=== PATIENT | male | born 1980 | race African-American/Black ===

== ENCOUNTER 2020-01-22 10:36 | Outpatient (REF) | payer OTHER, SELFPAY ==
[2020-01-22 11:38] LABS: MANUAL DIFF FLAG NO
[2020-01-22 11:46] LABS: Glucose Urine UA NEG (NEG); Leukocyte Esterase Urine NEG (NEG); Nitrite Urine NEG (NEG); PH 6.5 (5.0-8.0); Specific Gravity - Urine 1.025 (1.005-1.025); Urine Ketones NEG (NEG); Urine Protein NEG (NEG-TRACE)
[2020-01-22 11:47] LABS: Basophils Percent Auto 0.4 % (0-2); Eosinophils Absolute Auto 0.2 X10*3/uL (0.0-0.4); Eosinophils Percent Auto 2.7 % (0-4); Hematocrit 37.6 % (42-52); Hemoglobin 12.3 g/dl (14.0-18.0); Imm Gran Abs Auto 0.05 X10*3/uL (0.00-0.03); Imm Gran Pct Auto 0.7 % (0.0-0.4); Lymphocytes Percent Auto 26.6 % (20-40); Mean Corpuscular HGB Conc 32.7 g/dl (31.0-36.0); Mean Corpuscular Volume 97.9 fL (80-98); Mean Platelet Volume 9.3 fL (9.4-12.4); Monocytes Absolute Auto 0.6 X10*3/uL (0.1-1.2); Monocytes Percent Auto 8.4 % (2-11); Neutrophils Absolute Auto 4.6 X10*3/uL (2.0-8.3); Neutrophils Percent Auto 61.2 % (45-73); Platelet Count 299 X10*3/uL (160-400); Red Blood Count 3.84 X10*6/uL (4.60-5.80); Red Cell Distribution Width 12.1 % (11.0-16.0); White Blood Count 7.5 X10*3/uL (4.8-10.8)
[2020-01-22 11:48] LABS: Appearance Urine CLEAR; Color Urine YELLOW; Urine Blood TRACE (NEG)
[2020-01-22 12:01] LABS: Cholesterol 230 mg/dL; HDL Cholesterol 44 mg/dL; LDL Cholesterol Calculated 175 mg/dl; Triglycerides 59 mg/dL
[2020-01-22 12:02] LABS: Mucus Urine 2+ /LPF; WBC Urine 0-2 /HPF (0-4)
[2020-01-22 12:03] LABS: Alanine Aminotransferase 12 U/L (0-40); Albumin Level 4.3 g/dL (3.5-5.0); Alkaline Phosphatase 43 U/L (39-117); Anion Gap 12 (12-20); Aspartate Amino Transferase 15 U/L (5-37); Bilirubin Total 0.6 mg/dL (0.0-1.0); Blood Urea Nitrogen 14 mg/dL (9-16); Carbon Dioxide 27 mmol/L (22-29); Chloride 106 mmol/L (96-108); Estimated Glomerular Filt Rate > 60; Glucose Fasting 94 mg/dL (60-99); Potassium 4.2 mmol/l (3.3-5.1); Sodium 141 mmol/L (135-145); Total Protein 7.5 g/dL (6.5-8.0)
[2020-01-22 12:24] LABS: TSH reflex Free T4 0.56 mIU/mL (0.32-4.0)
[2020-01-22 13:10] LABS: Folate 3.5 ng/mL (> or = 4.0); Vitamin B12 234 pg/mL (200-900)
== END 2020-01-22 10:37 | disposition home or self-care (01) ==
LOC: HO.LAB 10:36
PROVIDERS: PCP Physician Assistant; Visit Provider Internal Medicine
DX: Z00.00 Encounter for general adult medical examination without abnormal findings (principal)
CPT/HCPCS: 36415; 80053; 80061; 81001; 82607; 82746; 84443; 85025

== ENCOUNTER 2022-12-04 09:30 | Outpatient (AMB) | payer OTHER, SELFPAY ==
[2022-12-04 09:33] VITALS: BP 134/82; PULSE 89; O2SAT 97; BMI 22.9
--- NOTE | 2022-12-04 09:33 | MHC.PC.OV ---
Vital Signs 12/04/22 09:33 Height 5 ft 8 in Weight 150 lb 8 oz BMI 22.9 BP 134/82 Blood Pressure Location Lt brachial Position Sitting Pulse 89 Pulse Source Pulse Oximeter Pulse Oximetry (%) 97 Oxygen Delivery Method Room Air Intake Visit Reasons: PE Allergies No Known Allergies [No Known Allergies*] Allergy (Verified 12/04/22 09:39) Medication List - Last Reconciled 12/04/22 by Pablo Kellogg PA-C mirtazapine 7.5 mg PO BEDTIME risperidone 1 mg PO DAILY Tobacco use date assessed: 12/04/22 HPI PE HPI Details Patient is a 42-year-old male here today for routine annual physical. ? Patient has a past medical history significant for major depressive disorder, OCD,, borderline high cholesterol . Concern--> if no concerns today. His weight has stabilized around 150 lb. Unfortunately has not gotten fasting labs done before today's visit. ? .. ? OCD: IS followed by a therapist weekly.? Continues on his mental health medications.? Continues to smoke weed on a daily basis .. Borderline high cholesterol: has not gotten fasting labs done to re-evaluate cholesterol. Unfortunately has not been able to get any labs done .. Vaccine: Considering the COVID vac, needs Tdap though declines offers to get Tdap vaccine today [facility] Medical History Tinnitus of both ears Surgical History No pertinent past surgical history Family History Father Osteoarthritis of knee Mother History of hyperthyroidism Social History (Updated 12/04/22 @ 09:43 by Pablo Kellogg PA-C) Housing: Apartment Alcohol intake: current Alcohol intake frequency: holidays/special occasions only Patient Tobacco Use Status: Never used Tobacco e-Cigarette/Vaping Use: Never Used Second Hand Smoke Exposure: No Substance Use Type: Marijuana Current occupational status: disabled Cognitive needs: No Hearing needs: No Vision needs: No Questionnaire PHQ-9 Over the last 2 weeks, how often have you been bothered by any of the following problems? 1. Little interest or pleasure in doing things: not at all 2. Feeling down, depressed, or hopeless: not at all 3. Trouble falling or staying asleep, or sleeping too much: not at all 4. Feeling tired or having little energy: not at all 5. Poor appetite or overeating: not at all 6. Feeling bad about yourself - or that you are a failure or have let yourself or your family down: not at all 7. Trouble concentrating on things, such as reading the newspaper or watching television: not at all 8. Moving or speaking so slowly that other people could have noticed. Or the opposite - being so fidgety or restless that you have been moving around a lot more than usual: not at all 9. Thoughts that you would be better off or of hurting yourself in some way: not at all Total score: 0 Depression Screening Interpretation: Negative 43468 - PHQ-9 Billing: Yes Source: Developed by Drs. David Obrien, Aspen Vergara, David Sol and colleagues, with an educational bernardo from [employer]. Thrive Questionnaire Date Thrive assessed: 12/04/22 I am a: Patient What is your living situation today?: I have a steady place to live Within the past 12 months, did the food you bought not last and you didn't have the money to get more?: Never true Within the past 12 months, did you worry whether your food would run out before you got money to buy more?: Never true Currently or been in a relationship where the following occur: no concerns reported AUDIT C Alcohol Use Questionnaire (AUDIT-C) 1. How often do you have a drink containing alcohol?: Monthly or less 2. How many drinks containing alcohol do you have on a typical day when you are drinking?: 1 or 2 3. How often do you have six or more drinks on one occasion?: Never Total Score: 1 JEFFRY-7 AMB Questionnaire JEFFRY-7 Date JEFFRY - 7 assessed: 12/04/22 Feeling nervous, anxious, or on edge: 0 = Not at all Not being able to stop or control worryin = Not at all Worrying too much about different things: 0 = Not at all Trouble relaxin = Not at all Being so restless that it is hard to sit still: 0 = Not at all Becoming easily annoyed or irritable: 0 = Not at all Feeling afraid as if something awful might happen: 0 = Not at all Total JEFFRY-7 score (0-4 normal; 5-9 mild; 10-14 moderate; 15-21 severe): 0 Source: Developed by Drs. David Obrien, Aspen Vergara, David Sol and colleagues, with an educational bernardo from [employer]. JEFFRY-7 Assessment Billing JEFFRY-7 Assessment Tool: JEFFRY-7 Assessment 65363 Review of Systems Const Denies body aches, Denies chills, Denies excessive sweating, Denies fatigue, Denies fever(s) and Denies headache(s) Eyes Denies blurry vision ENT Denies dysphagia, Denies vertigo, Denies dizziness, Denies headache(s), Denies hearing loss and Denies tinnitus Card Denies chest pain, Denies chest pain with activity, Denies syncope, Denies irregular heart rhythm and Denies dyspnea Resp Denies chest congestion, Denies cough, Denies hemoptysis, Denies dyspnea and Denies wheezing GI Denies abdominal pain, Denies melena, Denies hematochezia, Denies coffee ground emesis, Denies dysphagia, Denies diarrhea, Denies nausea and Denies vomiting Denies difficulty urinating, Denies dysuria, Denies urinary frequency, Denies urinary hesitancy and Denies urinary urgency Musc Denies arthralgias, Denies limited range of motion, Denies muscle cramps and Denies muscle weakness Skin/Breast Denies rash and Denies skin ulcer Neuro Denies Abnormal speech present, Denies confusion, Denies vertigo, Denies dizziness, Denies syncope, Denies headache(s), Denies memory loss and Denies seizure-like activity Psych Denies anxiety, Denies confusion, Denies depression, Denies memory loss, Denies panic attacks and Denies paranoia Endo Denies excessive sweating, Denies fatigue, Denies flushing, Denies polydipsia and Denies polyuria Aller/Immun Denies wheezing Physical exam (Primary Care) Vital Signs: Last Vital Signs Pulse 89 12/04/22 09:33 BP 134/82 12/04/22 09:33 Pulse Ox 97 12/04/22 09:33 Oxygen Delivery Method Room Air 12/04/22 09:33 BMI result Body Mass Index 22.9 Tobacco/Smoking Status: Tobacco use Status Tobacco use date assessed 12/04/22 12/04/22 09:37 Patient Tobacco Use Status Never used Tobacco 12/04/22 09:37 e-Cigarette/Vaping Use Never Used 12/04/22 09:37 PHQ-9: PHQ-9 Score PHQ-9: Total score 0 12/04/22 09:37 Depression Screening Interpretation: Negative Thrive Assessment: Date of Thrive Assessment Date Thrive assessed 12/04/22 12/04/22 09:37 Currently or been in a relationship where the following occur: no concerns reported Const General: cooperative, comfortable, no acute distress, alert and awake; No confusion Orientation/consciousness: oriented to person, oriented to place, patient oriented x3 and No confusion HENMT Head: Yes normocephalic Ears: external ears normal and TM's normal bilaterally Face and sinus: No sinus tenderness Mouth: Normal oral and palatal mucosa present and tongue normal Teeth and gingiva: dentition normal and gingiva normal Throat: Yes posterior oropharynx normal, Yes tonsils normal and Yes uvula midline Eyes Conjunctivae: conjunctivae normal Sclerae: sclerae normal Pupils: Equal, round and reactive pupils present EOM: EOMs intact bilaterally Direct Ophthalmoscopy: No no photophobia Neck Neck: Yes no lymphadenopathy, No tender and Yes no JVD Thyroid: Thyroid normal Carotids: no bruits Chest Chest palpation & inspection: no tenderness Resp Effort & Inspection: normal respiratory effort, no audible wheezes, not labored and no stridor Auscultation: no crackles, no rales, no rhonchi and no wheezes Cardio Jugular venous distension: no JVD Rate: regular rate, not bradycardic and not tachycardic Rhythm: regular rhythm Bruits: no carotid bruits Peripheral pulses: Peripheral pulses 2+ throughout GI Inspection: Yes normal to inspection, No abdominal wall ecchymosis and No visible herniation Palpation (GI): Soft to palpation, nontender, no guarding, not rigid and No hepatosplenomegaly present Auscultation: normoactive bowel sounds General: Yes no CVA tenderness Back/Spine/Pelvis Back: no CVA tenderness and No back tenderness Cervical Spine: cervical ROM normal Thoracic/Lumbar Spine: thoracic and lumbar spine normal to inspection, straight leg raise negative bilaterally, No thoraco-lumbar ROM limited and No lumbar spinal tenderness Skin Lesions: no lesions Rashes: no rashes Wounds: no wounds Neuro General: oriented to person, oriented to place, patient oriented x3, CN's II-XI intact bilaterally and No confusion Cranial nerves: Yes Equal, round and reactive pupils present and Yes Normal accommodation reflex present Cognition (Neuro): normal cognition Speech: No Abnormal speech present Gait exam (Neuro): Normal gait present Motor exam (neuro): 5/5 motor strength present throughout Extrem Right upper extremity: full ROM; no cyanosis Left upper extremity: full ROM; no cyanosis Right lower extremity: no edema Left lower extremity: no edema Psych Appearance: grossly normal Mental Status: mental status grossly normal Affect: normal affect Attitude: cooperative Thought process: Normal thought process present Assessment and Plan Assessment & Plan (1) Annual physical exam: Code(s): Z00.00 - Encounter for general adult medical examination without abnormal findings (2) Borderline high cholesterol: Code(s): E78.9 - Disorder of lipoprotein metabolism, unspecified Plan: Patient's history borderline high total cholesterol. Advised to get fasting labs to re-evaluate the cholesterol. Continue on lifestyle modifications reducing high cholesterol foods in his diet. (3) History of OCD (obsessive compulsive disorder): Code(s): Z86.59 - Personal history of other mental and behavioral disorders Plan: Patient continues on both mirtazapine and Risperdal for his OCD and major depressive disorder. Does speak with a mental health therapist though have a psychiatrit. He feels he is stable on his current mental medications. Orders: Orders Comprehensive [place]. Panel Fast Today Z13.1 - Encounter for screening for diabetes mellitus Lipid Panel Today E78.9 - Disorder of lipoprotein metabolism, unspecified TSH reflex Free T4 Today R63.4 - Abnormal weight loss Coding Level of Care Code Est Pt Prev Care 40-64y(88789) Diagnoses Annual physical exam Z00.00 Borderline high cholesterol E78.9 History of OCD (obsessive compulsive disorder) Z86.59 Additional Codes JEFFRY-7 Assessment Billing - JEFFRY-7 Assessment Tool: JEFFRY-7 Assessment 31111 ([id number])
== END 2022-12-04 09:53 | disposition home or self-care (01) ==
PROVIDERS: PCP Physician Assistant; Visit Provider Physician Assistant
DX: Z00.00 Encounter for general adult medical examination without abnormal findings (principal); E78.9 Disorder of lipoprotein metabolism, unspecified; Z86.59 Personal history of other mental and behavioral disorders
CPT/HCPCS: 99396

== ENCOUNTER 2023-06-05 08:23 | Outpatient (AMB) | payer OTHER, SELFPAY ==
--- NOTE | 2023-06-05 08:21 | A.OFFPC_ITS ---
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 Accompanied by: Self / Same As Patient Allergies No Known Allergies [No Known Allergies*] Allergy (Verified 06/05/23 08:32) Medication List - Last Reconciled 06/05/23 by Pablo Kellogg PA-C mirtazapine 7.5 mg PO BEDTIME risperidone 1 mg PO DAILY Tobacco use date assessed: 06/05/23 Dental Screening Dental Screen Date: 06/05/23 Did you have a dental visit in the last 12 months?: Yes Did you have a dental problem in the last 6 months where you did not have access to dental care?: No Was dental information given to patient?: Patient has dentist HPI f/u OCD - Lab review HPI Details Patient is a 42-year-old male being evaluated today via telephone only. ? Patient has a past medical history significant for major depressive disorder, OCD,, borderline high cholesterol . Concern--> continues to be somewhat apprehensive on getting labs done to an apparent skin issue. ? .. ? OCD: IS followed by a therapist weekly through [facility].? Continues on his mental health medications.? Continues to smoke weed on a daily basis .. Borderline high cholesterol: has not gotten fasting labs done to re-evaluate cholesterol. [facility] Medical History Tinnitus of both ears Surgical History No pertinent past surgical history Family History Father Osteoarthritis of knee Mother History of hyperthyroidism Social History Housing: Apartment Alcohol intake: current Alcohol intake frequency: holidays/special occasions only Patient Tobacco Use Status: Never used Tobacco e-Cigarette/Vaping Use: Never Used Second Hand Smoke Exposure: No Substance Use Type: Marijuana Current occupational status: disabled Cognitive needs: No Hearing needs: No Vision needs: No Questionnaire PHQ-9 Over the last 2 weeks, how often have you been bothered by any of the following problems? 1. Little interest or pleasure in doing things: not at all 2. Feeling down, depressed, or hopeless: not at all 3. Trouble falling or staying asleep, or sleeping too much: not at all 4. Feeling tired or having little energy: not at all 5. Poor appetite or overeating: not at all 6. Feeling bad about yourself - or that you are a failure or have let yourself or your family down: not at all 7. Trouble concentrating on things, such as reading the newspaper or watching television: not at all 8. Moving or speaking so slowly that other people could have noticed. Or the opposite - being so fidgety or restless that you have been moving around a lot more than usual: not at all 9. Thoughts that you would be better off or of hurting yourself in some way: not at all Total score: 0 Depression Screening Interpretation: Negative Depression Screening Done: Yes 71425 - PHQ-9 Billing: Yes Source: Developed by Drs. David Obrien, Aspen Vergara, David Sol and colleagues, with an educational bernardo from [employer]. Thrive Questionnaire Date Thrive assessed: 06/05/23 I am a: Patient What is your living situation today?: I have a steady place to live Within the past 12 months, did the food you bought not last and you didn't have the money to get more?: Never true Within the past 12 months, did you worry whether your food would run out before you got money to buy more?: Never true Do you have trouble paying for medicines?: No Do you have trouble getting transportation to medical appointments?: No Do you have trouble paying your heating and electricity bill?: No Do you have trouble taking care of your child, family member or friend?: No Do you have trouble with day-to-day activities such as bathing, preparing meals, shopping, managing finances, etc.?: No Are you currently unemployed and looking for a job?: No Are you interested in more education?: No Please select the resources that you would like help with: None Currently or been in a relationship where the following occur: no concerns reported THRIVE Score: 0 AUDIT C Alcohol Use Questionnaire (AUDIT-C) 1. How often do you have a drink containing alcohol?: Monthly or less 2. How many drinks containing alcohol do you have on a typical day when you are drinking?: 1 or 2 3. How often do you have six or more drinks on one occasion?: Never Total Score: 1 JEFFRY-7 AMB Questionnaire JEFFRY-7 Date JEFFRY - 7 assessed: 06/05/23 Feeling nervous, anxious, or on edge: 0 = Not at all Not being able to stop or control worryin = Not at all Worrying too much about different things: 0 = Not at all Trouble relaxin = Not at all Being so restless that it is hard to sit still: 0 = Not at all Becoming easily annoyed or irritable: 0 = Not at all Feeling afraid as if something awful might happen: 0 = Not at all Total JEFFRY-7 score (0-4 normal; 5-9 mild; 10-14 moderate; 15-21 severe): 0 Source: Developed by Drs. David Obrien, Aspen Vergara, David Sol and colleagues, with an educational bernardo from [employer]. JEFFRY-7 Assessment Billing JEFFRY-7 Assessment Tool: JEFFRY-7 Assessment 50069 Review of Systems Const Denies headache(s) Eyes Denies loss of vision ENT Denies vertigo, Denies dizziness, Denies headache(s) and Denies sore throat Card Denies chest pain, Denies leg edema and Denies lightheadedness Resp Denies cough, Denies hemoptysis and Denies wheezing GI Denies abdominal pain, Denies melena, Denies constipation, Denies diarrhea and Denies vomiting Denies dysuria, Denies urinary frequency and Denies urinary urgency Musc Denies arthralgias, Denies joint swelling, Denies numbness and Denies tingling Neuro Denies behavioral changes, Denies vertigo, Denies dizziness, Denies headache(s), Denies loss of vision, Denies memory loss, Denies numbness and Denies tingling Psych Denies anxiety, Denies behavioral changes, Denies depression, Denies memory loss and Denies panic attacks Shivam/Lymph Denies easy bleeding and Denies easy bruising Aller/Immun Denies wheezing Physical exam (Primary Care) Tobacco/Smoking Status: Tobacco use Status Tobacco use date assessed 06/05/23 06/05/23 08:23 Patient Tobacco Use Status Never used Tobacco 06/05/23 08:23 e-Cigarette/Vaping Use Never Used 06/05/23 08:23 PHQ-9: PHQ-9 Score PHQ-9: Total score 0 06/05/23 08:24 Depression Screening Interpretation: Negative Thrive Assessment: Date of Thrive Assessment Date Thrive assessed 06/05/23 06/05/23 08:23 Currently or been in a relationship where the following occur: no concerns reported Telehealth Telehealth Location of provider rendering services: practice address Location of patient: address on file Patient Identification confirmed using: Name, : Yes Telehealth method: voice only Patient verbally consented to treatment: Yes Patient verbally consented to billing insurance company: Yes Patient informed of any privacy concerns related to visit: Yes Minutes spent on Phone/Video with Pt.: 11 Assessment and Plan Assessment & Plan (1) Borderline high cholesterol: Code(s): E78.9 - Disorder of lipoprotein metabolism, unspecified Plan: Patient's history borderline high total cholesterol. Advised to get fasting labs to re-evaluate the cholesterol. Continue on lifestyle modifications reducing high cholesterol foods in his diet. (2) History of OCD (obsessive compulsive disorder): Code(s): Z86.59 - Personal history of other mental and behavioral disorders Plan: Patient continues on both mirtazapine and Risperdal for his OCD and major depressive disorder. Does speak with a mental health therapist though have a psychiatrit. He feels he is stable on his current mental medications. Coding Level of Care Code Tele Est Pt Level 3 (23779) Diagnoses Borderline high cholesterol E78.9 History of OCD (obsessive compulsive disorder) Z86.59 Additional Codes JEFFRY-7 Assessment Billing - JEFFRY-7 Assessment Tool: JEFFRY-7 Assessment 80093 ([id number])
== END 2023-06-05 08:39 | disposition home or self-care (01) ==
LOC: HO.HMGH 08:23
PROVIDERS: PCP Physician Assistant; Visit Provider Physician Assistant
DX: E78.9 Disorder of lipoprotein metabolism, unspecified (principal); Z86.59 Personal history of other mental and behavioral disorders
CPT/HCPCS: 99213

== ENCOUNTER 2023-12-17 13:33 | Outpatient (AMB) | payer OTHER, SELFPAY ==
[2023-12-17 13:35] VITALS: BP 110/60; PULSE 98; O2SAT 98; BMI 24.2
--- NOTE | 2023-12-17 13:35 | MHC.PC.OV ---
Vital Signs 12/17/23 13:35 Height 5 ft 8 in Weight 159 lb BMI 24.2 BP 110/60 Blood Pressure Location Lt brachial Position Sitting Pulse 98 Pulse Source Pulse Oximeter Pulse Oximetry (%) 98 Oxygen Delivery Method Room Air Intake Visit Reasons: PE Intake Note: Patient is here today for a physical. 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 Patient has a past medical history significant for major depressive disorder, OCD,, borderline high cholesterol . Concern--> continues to be somewhat apprehensive on getting labs done to an apparent skin issue. ? .. ? OCD: IS followed by a therapist weekly through [facility].? Continues on his mental health medications.? Continues to smoke weed on a daily basis .. Borderline high cholesterol: has not gotten fasting labs done to re-evaluate cholesterol. Unfortunately has not been able to get any labs done .. Vaccine: Considering the COVID vac, needs Tdap though declines offers to get Tdap vaccine today [facility] Medical History Tinnitus of both ears Surgical History No pertinent past surgical history Family History Father Osteoarthritis of knee Mother History of hyperthyroidism Social History Housing: Apartment Alcohol intake: current Alcohol intake frequency: holidays/special occasions only Patient Tobacco Use Status: Never used Tobacco e-Cigarette/Vaping Use: Never Used Second Hand Smoke Exposure: No Substance Use Type: Marijuana Current occupational status: disabled Cognitive needs: No Hearing needs: No Vision needs: No Questionnaire Thrive Questionnaire Date Thrive assessed: 06/05/23 JEFFRY-7 AMB Questionnaire JEFFRY-7 Date JEFFRY - 7 assessed: 06/05/23 Source: Developed by Drs. David Obrien, Aspen Vergara, David Sol and colleagues, with an educational bernardo from [employer]. Review of Systems Const Denies body aches, Denies chills, Denies excessive sweating, Denies fatigue, Denies fever(s) and Denies headache(s) Eyes Denies blurry vision ENT Denies dysphagia, Denies vertigo, Denies dizziness, Denies headache(s), Denies hearing loss and Denies tinnitus Card Denies chest pain, Denies chest pain with activity, Denies syncope, Denies irregular heart rhythm and Denies dyspnea Resp Denies chest congestion, Denies cough, Denies hemoptysis, Denies dyspnea and Denies wheezing GI Denies abdominal pain, Denies melena, Denies hematochezia, Denies coffee ground emesis, Denies dysphagia, Denies diarrhea, Denies nausea and Denies vomiting Denies difficulty urinating, Denies dysuria, Denies urinary frequency, Denies urinary hesitancy and Denies urinary urgency Musc Denies arthralgias, Denies limited range of motion, Denies muscle cramps and Denies muscle weakness Skin/Breast Denies rash and Denies skin ulcer Neuro Denies Abnormal speech present, Denies confusion, Denies vertigo, Denies dizziness, Denies syncope, Denies headache(s), Denies memory loss and Denies seizure-like activity Psych Denies anxiety, Denies confusion, Denies depression, Denies memory loss, Denies panic attacks and Denies paranoia Endo Denies excessive sweating, Denies fatigue, Denies flushing, Denies polydipsia and Denies polyuria Aller/Immun Denies wheezing Physical exam (Primary Care) Vital Signs: Last Vital Signs Pulse 98 12/17/23 13:35 BP 110/60 12/17/23 13:35 Pulse Ox 98 12/17/23 13:35 Oxygen Delivery Method Room Air 12/17/23 13:35 BMI result Body Mass Index 24.2 Tobacco/Smoking Status: Tobacco use Status Tobacco use date assessed 06/05/23 12/17/23 13:37 Patient Tobacco Use Status Never used Tobacco 12/17/23 13:37 e-Cigarette/Vaping Use Never Used 12/17/23 13:37 Thrive Assessment: Date of Thrive Assessment Date Thrive assessed 06/05/23 12/17/23 13:37 Const General: cooperative, comfortable, no acute distress, alert and awake; No confusion Orientation/consciousness: oriented to person, oriented to place, patient oriented x3 and No confusion HENMT Head: Yes normocephalic Ears: external ears normal and TM's normal bilaterally Face and sinus: No sinus tenderness Mouth: Normal oral and palatal mucosa present and tongue normal Teeth and gingiva: dentition normal and gingiva normal Throat: Yes posterior oropharynx normal, Yes tonsils normal and Yes uvula midline Eyes Conjunctivae: conjunctivae normal Sclerae: sclerae normal Pupils: Equal, round and reactive pupils present EOM: EOMs intact bilaterally Direct Ophthalmoscopy: No no photophobia Neck Neck: Yes no lymphadenopathy, No tender and Yes no JVD Thyroid: Thyroid normal Carotids: no bruits Chest Chest palpation & inspection: no tenderness Resp Effort & Inspection: normal respiratory effort, no audible wheezes, not labored and no stridor Auscultation: no crackles, no rales, no rhonchi and no wheezes Cardio Jugular venous distension: no JVD Rate: regular rate, not bradycardic and not tachycardic Rhythm: regular rhythm Bruits: no carotid bruits Peripheral pulses: Peripheral pulses 2+ throughout GI Inspection: Yes normal to inspection, No abdominal wall ecchymosis and No visible herniation Palpation (GI): Soft to palpation, nontender, no guarding, not rigid and No hepatosplenomegaly present Auscultation: normoactive bowel sounds General: Yes no CVA tenderness Back/Spine/Pelvis Back: no CVA tenderness and No back tenderness Cervical Spine: cervical ROM normal Thoracic/Lumbar Spine: thoracic and lumbar spine normal to inspection, straight leg raise negative bilaterally, No thoraco-lumbar ROM limited and No lumbar spinal tenderness Skin Lesions: no lesions Rashes: no rashes Wounds: no wounds Neuro General: oriented to person, oriented to place, patient oriented x3, CN's II-XI intact bilaterally and No confusion Cranial nerves: Yes Equal, round and reactive pupils present and Yes Normal accommodation reflex present Cognition (Neuro): normal cognition Speech: No Abnormal speech present Gait exam (Neuro): Normal gait present Motor exam (neuro): 5/5 motor strength present throughout Extrem Right upper extremity: full ROM; no cyanosis Left upper extremity: full ROM; no cyanosis Right lower extremity: no edema Left lower extremity: no edema Psych Appearance: grossly normal Mental Status: mental status grossly normal Affect: normal affect Attitude: cooperative Thought process: Normal thought process present Assessment and Plan Assessment & Plan (1) Annual physical exam: Code(s): Z00.00 - Encounter for general adult medical examination without abnormal findings (2) Borderline high cholesterol: Code(s): E78.9 - Disorder of lipoprotein metabolism, unspecified Plan: Patient's history borderline high total cholesterol. Advised to get fasting labs to re-evaluate the cholesterol. Continue on lifestyle modifications reducing high cholesterol foods in his diet. (3) History of OCD (obsessive compulsive disorder): Code(s): Z86.59 - Personal history of other mental and behavioral disorders Plan: Patient continues on both mirtazapine and Risperdal for his OCD and major depressive disorder. Does speak with a mental health therapist though have a psychiatrit. He feels he is stable on his current mental medications. (4) Screening for diabetes mellitus (DM): Code(s): Z13.1 - Encounter for screening for diabetes mellitus Orders: Orders Comprehensive [place]. Panel Fast Today Z13.1 - Encounter for screening for diabetes mellitus Complete Blood Count no Diff Today Z13.1 - Encounter for screening for diabetes mellitus TSH reflex Free T4 Today R63.4 - Abnormal weight loss Lipid Panel Today E78.9 - Disorder of lipoprotein metabolism, unspecified Coding Level of Care Code Est Pt Prev Care 40-64y(40195) Diagnoses Annual physical exam Z00.00 Borderline high cholesterol E78.9 History of OCD (obsessive compulsive disorder) Z86.59 Screening for diabetes mellitus (DM) Z13.1
== END 2023-12-17 13:53 | disposition home or self-care (01) ==
PROVIDERS: PCP Physician Assistant; Visit Provider Physician Assistant
DX: Z00.00 Encounter for general adult medical examination without abnormal findings (principal); E78.9 Disorder of lipoprotein metabolism, unspecified; Z86.59 Personal history of other mental and behavioral disorders; Z13.1 Encounter for screening for diabetes mellitus
CPT/HCPCS: 99396

== ENCOUNTER 2024-06-16 08:33 | Outpatient (AMB) | payer OTHER, SELFPAY ==
[2024-06-16 08:36] VITALS: BP 116/68; PULSE 78; O2SAT 98; BMI 25.4
--- NOTE | 2024-06-16 08:36 | MHC.PC.OV ---
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 Accompanied by: Self / Same As Patient Allergies No Known Allergies [No Known Allergies*] Allergy (Verified 06/16/24 08:42) Medication List - Last Reconciled 06/16/24 by Pablo Kellogg PA-C mirtazapine 7.5 mg PO BEDTIME risperidone 1 mg PO DAILY Tobacco use date assessed: 06/16/24 Dental Screening Dental Screen Date: 06/16/24 Did you have a dental visit in the last 12 months?: No Did you have a dental problem in the last 6 months where you did not have access to dental care?: No Was dental information given to patient?: Patient has dentist HPI 6 Month F/U HPI Details Patient is a 43-year-old male here today for follow-up visit ? Patient has a past medical history significant for major depressive disorder, OCD,, borderline high cholesterol . Concern--> continues to be somewhat apprehensive on getting labs done to an apparent skin issue. ? .. ? OCD: IS followed by a therapist weekly through [facility].? Continues on his mental health medications.? Continues to smoke weed on a daily basis .. Borderline high cholesterol: has not gotten fasting labs done to re-evaluate cholesterol. [facility] Medical History Tinnitus of both ears Surgical History No pertinent past surgical history Family History Father Osteoarthritis of knee Mother History of hyperthyroidism Social History Housing: Apartment Alcohol intake: current Alcohol intake frequency: holidays/special occasions only Patient Tobacco Use Status: Never used Tobacco e-Cigarette/Vaping Use: Never Used Second Hand Smoke Exposure: No Substance Use Type: Marijuana service: No Current occupational status: disabled Cognitive needs: No Hearing needs: No Vision needs: No Questionnaire PHQ-9 Over the last 2 weeks, how often have you been bothered by any of the following problems? 1. Little interest or pleasure in doing things: not at all 2. Feeling down, depressed, or hopeless: not at all 3. Trouble falling or staying asleep, or sleeping too much: not at all 4. Feeling tired or having little energy: not at all 5. Poor appetite or overeating: not at all 6. Feeling bad about yourself - or that you are a failure or have let yourself or your family down: not at all 7. Trouble concentrating on things, such as reading the newspaper or watching television: not at all 8. Moving or speaking so slowly that other people could have noticed. Or the opposite - being so fidgety or restless that you have been moving around a lot more than usual: not at all 9. Thoughts that you would be better off or of hurting yourself in some way: not at all Total score: 0 Depression Screening Interpretation: Negative Depression Screening Done: Yes 05140 - PHQ-9 Billing: Yes Source: Developed by Drs. David Obrien, Aspen Vergara, David Sol and colleagues, with an educational bernardo from [employer] Thrive Questionnaire Date Thrive assessed: 06/16/24 I am a: Patient What is your living situation today?: I have a steady place to live Within the past 12 months, did the food you bought not last and you didn't have the money to get more?: Never true Within the past 12 months, did you worry whether your food would run out before you got money to buy more?: Never true Do you have trouble paying for medicines?: No Do you have trouble getting transportation to medical appointments?: No Do you have trouble paying your heating and electricity bill?: No Do you have trouble taking care of your child, family member or friend?: No Do you have trouble with day-to-day activities such as bathing, preparing meals, shopping, managing finances, etc.?: No Are you currently unemployed and looking for a job?: No Are you interested in more education?: No Please select the resources that you would like help with: None Currently or been in a relationship where the following occur: No concerns reported THRIVE Score: 0 AUDIT C Alcohol Use Questionnaire (AUDIT-C) 1. How often do you have a drink containing alcohol?: Never Total Score: 0 JEFFRY-7 AMB Questionnaire JEFFRY-7 Date JEFFRY - 7 assessed: 06/16/24 Feeling nervous, anxious, or on edge: 0 = Not at all Not being able to stop or control worryin = Not at all Worrying too much about different things: 0 = Not at all Trouble relaxin = Not at all Being so restless that it is hard to sit still: 0 = Not at all Becoming easily annoyed or irritable: 0 = Not at all Feeling afraid as if something awful might happen: 0 = Not at all Total JEFFRY-7 score (0-4 normal; 5-9 mild; 10-14 moderate; 15-21 severe): 0 Source: Developed by Drs. David Obrien, Aspen Vergara, David Sol and colleagues, with an educational bernardo from [employer] JEFFRY-7 Assessment Billing JEFFRY-7 Assessment Tool: JEFFRY-7 Assessment 28877 Review of Systems Const Denies headache(s) Eyes Denies loss of vision ENT Denies vertigo, Denies dizziness, Denies headache(s) and Denies sore throat Card Denies chest pain, Denies leg edema and Denies lightheadedness Resp Denies cough, Denies hemoptysis and Denies wheezing GI Denies abdominal pain, Denies melena, Denies constipation, Denies diarrhea and Denies vomiting Denies dysuria, Denies urinary frequency and Denies urinary urgency Musc Denies arthralgias, Denies joint swelling, Denies numbness and Denies tingling Neuro Denies Abnormal speech present, Denies behavioral changes, Denies vertigo, Denies dizziness, Denies headache(s), Denies loss of vision, Denies memory loss, Denies numbness and Denies tingling Psych Denies anxiety, Denies behavioral changes, Denies depression, Denies memory loss and Denies panic attacks Shivam/Lymph Denies easy bleeding and Denies easy bruising Aller/Immun Denies wheezing Physical exam (Primary Care) Vital Signs: Last Vital Signs Pulse 78 02/24/25 08:36 BP 116/68 06/16/24 08:36 Pulse Ox 98 06/16/24 08:36 Oxygen Delivery Method Room Air 06/16/24 08:36 BMI result Body Mass Index 25.4 Tobacco/Smoking Status: Tobacco use Status Tobacco use date assessed 06/16/24 06/16/24 08:42 Patient Tobacco Use Status Never used Tobacco 06/16/24 08:42 e-Cigarette/Vaping Use Never Used 06/16/24 08:42 PHQ-9: PHQ-9 Score PHQ-9: Total score 0 06/16/24 08:42 Depression Screening Interpretation: Negative Thrive Assessment: Date of Thrive Assessment Date Thrive assessed 06/16/24 06/16/24 08:42 Currently or been in a relationship where the following occur: No concerns reported Const General: healthy appearing, no acute distress, alert and awake Nutritional Appearance: well nourished Orientation/consciousness: oriented to person, oriented to place and oriented to time HENMT Ears: TM's normal bilaterally General nose exam: Normal nasal mucous membranes and turbinates present Eyes Conjunctivae: conjunctivae normal Sclerae: sclerae normal Pupils: Equal, round and reactive pupils present Neck Neck: Yes no lymphadenopathy and Yes no JVD Thyroid: Thyroid normal Carotids: no bruits Resp Effort & Inspection: normal respiratory effort and not tachypneic Auscultation: no crackles, no rales, no rhonchi and no wheezes Cardio Rate: regular rate Rhythm: regular rhythm Heart sounds: no murmurs and normal S1 and S2 GI Palpation (GI): Soft to palpation, nontender, no hepatomegaly and no splenomegaly Auscultation: normal bowel sounds Skin General skin exam: no rashes or lesions noted and dry skin Neuro General: oriented to person, oriented to place and oriented to time Cranial nerves: Yes Equal, round and reactive pupils present Speech: No Abnormal speech present Gait exam (Neuro): Normal gait present Motor exam (neuro): no tremor noted Extrem Right upper extremity: full ROM Left upper extremity: full ROM Right lower extremity: full ROM; no edema Left lower extremity: full ROM; no edema Psych Mental Status: mental status grossly normal Speech and movement: Normal speech and movement present Affect: normal affect Attitude: cooperative Thought process: Normal thought process present Coding Level of Care Code Est Pt Level 4 (05021) Diagnoses History of OCD (obsessive compulsive disorder) Z86.59 Borderline high cholesterol E78.9 Additional Codes PHQ-9 - 79393 - PHQ-9 Billing: Yes ([id number]) JEFFRY-7 Assessment Billing - JEFFRY-7 Assessment Tool: JEFFRY-7 Assessment 93632 ([id number]) Assessment & Plan Assessment & Plan (1) History of OCD (obsessive compulsive disorder): Code(s): Z86.59 - Personal history of other mental and behavioral disorders Category: Medical Plan: continue current home meds, continue to follow mental therapy. He feels stable from a mental health point of view. (2) Borderline high cholesterol: Code(s): E78.9 - Disorder of lipoprotein metabolism, unspecified Category: Medical Plan: In 2019--> patient's most recent cholesterol at 230, LDL 175, advised to get fasting labs done to monitor his borderline cholesterol. Again has been apprehensive on getting blood work due to his skin issue. He feels confident he can get fasting labs done before December of 2024 Patient Instructions: Goal: Total cholesterol to be below 200 Barriers: Adherence to physical activity and healthy eating habits
== END 2024-06-16 08:52 | disposition home or self-care (01) ==
PROVIDERS: PCP Physician Assistant; Visit Provider Physician Assistant
DX: Z86.59 Personal history of other mental and behavioral disorders (principal); E78.9 Disorder of lipoprotein metabolism, unspecified

== ENCOUNTER → 2024-06-16 08:33 | Outpatient (BNVA) | payer OTHER, SELFPAY | PROVIDERS: PCP Physician Assistant; Visit Provider Physician Assistant | DX: E78.9 Disorder of lipoprotein metabolism, unspecified (principal); Z86.59 Personal history of other mental and behavioral disorders | CPT/HCPCS: 96127; 99212 ==

== ENCOUNTER 2024-12-24 08:07 | Outpatient (AMB) | payer OTHER, SELFPAY ==
[2024-12-24 08:11] VITALS: BP 110/60; PULSE 79; TEMP 36.3; O2SAT 94; BMI 25.1
--- NOTE | 2024-12-24 08:11 | MHC.PC.OV ---
Vital Signs 12/24/24 08:11 Height 5 ft 8 in Weight 165 lb 4 oz BMI 25.1 BP 110/60 Blood Pressure Location Lt brachial Position Sitting Pulse 79 Pulse Source Pulse Oximeter Temp 97.3 F Temp Source Temporal Artery Scan Pulse Oximetry (%) 94 Oxygen Delivery Method Room Air Intake Visit Reasons: Annual exam Intake Note: Patient is here today for a physical. 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 Patient has a past medical history significant for major depressive disorder, OCD,, borderline high cholesterol . Concern--> continues to be somewhat apprehensive on getting labs done to an apparent skin issue. ? .. ? OCD: IS followed by a therapist weekly through [facility] Continues on his mental health medications.? Continues to smoke weed on a daily basis .. Borderline high cholesterol: has not gotten fasting labs done to re-evaluate cholesterol. Unfortunately has not been able to get any labs done .. Vaccine: Considering the COVID vac, needs Tdap though declines offers to get Tdap vaccine today, also declined a flu vaccine [facility] Medical History Tinnitus of both ears Surgical History No pertinent past surgical history Family History Father Osteoarthritis of knee Mother History of hyperthyroidism Social History Housing: Apartment Alcohol intake: current Alcohol intake frequency: holidays/special occasions only Patient Tobacco Use Status: Never used Tobacco Tobacco use type: Cigarette e-Cigarette/Vaping Use: Never Used Second Hand Smoke Exposure: No Substance Use Type: Marijuana service: No Current occupational status: disabled Cognitive needs: No Hearing needs: No Vision needs: No Questionnaire PHQ-9 Over the last 2 weeks, how often have you been bothered by any of the following problems? 1. Little interest or pleasure in doing things: not at all 2. Feeling down, depressed, or hopeless: not at all 3. Trouble falling or staying asleep, or sleeping too much: not at all 4. Feeling tired or having little energy: not at all 5. Poor appetite or overeating: not at all 6. Feeling bad about yourself - or that you are a failure or have let yourself or your family down: not at all 7. Trouble concentrating on things, such as reading the newspaper or watching television: not at all 8. Moving or speaking so slowly that other people could have noticed. Or the opposite - being so fidgety or restless that you have been moving around a lot more than usual: not at all 9. Thoughts that you would be better off or of hurting yourself in some way: not at all Total score: 0 Depression Screening Interpretation: Negative Depression Screening Done: Yes 10709 - PHQ-9 Billing: Yes Source: Developed by Drs. David Obrien, David Corbin and colleagues, with an educational bernardo from [employer]. Thrive Questionnaire Date Thrive assessed: 06/16/24 AUDIT C Alcohol Use Questionnaire (AUDIT-C) 1. How often do you have a drink containing alcohol?: Never 3. How often do you have six or more drinks on one occasion?: Never Total Score: 0 JEFFRY-7 AMB Questionnaire JEFFRY-7 Date JEFFRY - 7 assessed: 06/16/24 Source: Developed by Drs. David Obrien, David Corbin and colleagues, with an educational bernardo from [employer]. Review of Systems Const Denies body aches, Denies chills, Denies excessive sweating, Denies fatigue, Denies fever(s) and Denies headache(s) Eyes Denies blurry vision ENT Denies dysphagia, Denies vertigo, Denies dizziness, Denies headache(s), Denies hearing loss and Denies tinnitus Card Denies chest pain, Denies chest pain with activity, Denies syncope, Denies irregular heart rhythm and Denies dyspnea Resp Denies chest congestion, Denies cough, Denies hemoptysis, Denies dyspnea and Denies wheezing GI Denies abdominal pain, Denies melena, Denies hematochezia, Denies coffee ground emesis, Denies dysphagia, Denies diarrhea, Denies nausea and Denies vomiting Denies difficulty urinating, Denies dysuria, Denies urinary frequency, Denies urinary hesitancy and Denies urinary urgency Musc Denies arthralgias, Denies limited range of motion, Denies muscle cramps and Denies muscle weakness Skin/Breast Denies rash and Denies skin ulcer Neuro Denies Abnormal speech present, Denies confusion, Denies vertigo, Denies dizziness, Denies syncope, Denies headache(s), Denies memory loss and Denies seizure-like activity Psych Denies anxiety, Denies confusion, Denies depression, Denies memory loss, Denies panic attacks and Denies paranoia Endo Denies excessive sweating, Denies fatigue, Denies flushing, Denies polydipsia and Denies polyuria Aller/Immun Denies wheezing Physical exam (Primary Care) Vital Signs: Last Vital Signs Temp 97.3 F 12/24/24 08:11 Pulse 79 12/24/24 08:11 BP 110/60 12/24/24 08:11 Pulse Ox 94 12/24/24 08:11 Oxygen Delivery Method Room Air 12/24/24 08:11 BMI result Body Mass Index 25.1 Tobacco/Smoking Status: Tobacco use Status Tobacco use date assessed 12/24/24 12/24/24 08:19 Patient Tobacco Use Status Never used Tobacco 12/24/24 08:12 Tobacco use type Cigarette 12/24/24 08:12 e-Cigarette/Vaping Use Never Used 12/24/24 08:12 PHQ-9: PHQ-9 Score PHQ-9: Total score 0 12/24/24 08:23 Depression Screening Interpretation: Negative Thrive Assessment: Date of Thrive Assessment Date Thrive assessed 06/16/24 12/24/24 08:12 Const General: cooperative, comfortable, no acute distress, alert and awake; No confusion Orientation/consciousness: oriented to person, oriented to place, patient oriented x3 and No confusion HENMT Head: Yes normocephalic Ears: external ears normal and TM's normal bilaterally Face and sinus: No sinus tenderness Mouth: Normal oral and palatal mucosa present and tongue normal Teeth and gingiva: dentition normal and gingiva normal Throat: Yes posterior oropharynx normal, Yes tonsils normal and Yes uvula midline Eyes Conjunctivae: conjunctivae normal Sclerae: sclerae normal Pupils: Equal, round and reactive pupils present EOM: EOMs intact bilaterally Direct Ophthalmoscopy: No no photophobia Neck Neck: Yes no lymphadenopathy, No tender and Yes no JVD Thyroid: Thyroid normal Carotids: no bruits Chest Chest palpation & inspection: no tenderness Resp Effort & Inspection: normal respiratory effort, no audible wheezes, not labored and no stridor Auscultation: no crackles, no rales, no rhonchi and no wheezes Cardio Jugular venous distension: no JVD Rate: regular rate, not bradycardic and not tachycardic Rhythm: regular rhythm Bruits: no carotid bruits Peripheral pulses: Peripheral pulses 2+ throughout GI Inspection: Yes normal to inspection, No abdominal wall ecchymosis and No visible herniation Palpation (GI): Soft to palpation, nontender, no guarding, not rigid and No hepatosplenomegaly present Auscultation: normoactive bowel sounds General: Yes no CVA tenderness Back/Spine/Pelvis Back: no CVA tenderness and No back tenderness Cervical Spine: cervical ROM normal Thoracic/Lumbar Spine: thoracic and lumbar spine normal to inspection, straight leg raise negative bilaterally, No thoraco-lumbar ROM limited and No lumbar spinal tenderness Skin Lesions: no lesions Rashes: no rashes Wounds: no wounds Neuro General: oriented to person, oriented to place, patient oriented x3, CN's II-XI intact bilaterally and No confusion Cranial nerves: Yes Equal, round and reactive pupils present and Yes Normal accommodation reflex present Cognition (Neuro): normal cognition Speech: No Abnormal speech present Gait exam (Neuro): Normal gait present Motor exam (neuro): 5/5 motor strength present throughout Extrem Right upper extremity: full ROM; no cyanosis Left upper extremity: full ROM; no cyanosis Right lower extremity: no edema Left lower extremity: no edema Psych Appearance: grossly normal Mental Status: mental status grossly normal Affect: normal affect Attitude: cooperative Thought process: Normal thought process present Coding Level of Care Code Est Pt Prev Care 40-64y(81766) Diagnoses Annual physical exam Z00.00 History of OCD (obsessive compulsive disorder) Z86.59 Borderline high cholesterol E78.9 Additional Codes PHQ-9 - 60613 - PHQ-9 Billing: Yes ([id number]) Assessment & Plan Assessment & Plan (1) Annual physical exam: Code(s): Z00.00 - Encounter for general adult medical examination without abnormal findings Category: Medical Plan: As per HPI (2) History of OCD (obsessive compulsive disorder): Code(s): Z86.59 - Personal history of other mental and behavioral disorders Category: Medical Plan: continue current home meds, continue to follow mental therapy. He feels stable from a mental health point of view. (3) Borderline high cholesterol: Code(s): E78.9 - Disorder of lipoprotein metabolism, unspecified Category: Medical Plan: In 2019--> patient's most recent cholesterol at 230, LDL 175, advised to get fasting labs done to monitor his borderline cholesterol. Again has been apprehensive on getting blood work due to his skin issue. STRONGLY ADVISED ON GETTING LABS FASTING [facility] Orders: Orders Complete Blood Count no Diff Today Z13.1 - Encounter for screening for diabetes mellitus Comprehensive [place]. Panel Fast Today Z13.1 - Encounter for screening for diabetes mellitus Lipid Panel Today E78.9 - Disorder of lipoprotein metabolism, unspecified
== END 2024-12-24 08:31 | disposition home or self-care (01) ==
PROVIDERS: PCP Physician Assistant; Visit Provider Physician Assistant
DX: Z00.00 Encounter for general adult medical examination without abnormal findings (principal); Z86.59 Personal history of other mental and behavioral disorders; E78.9 Disorder of lipoprotein metabolism, unspecified

== ENCOUNTER → 2024-12-24 08:07 | Outpatient (BNVA) | payer OTHER, SELFPAY | PROVIDERS: PCP Physician Assistant; Visit Provider Physician Assistant | DX: Z00.00 Encounter for general adult medical examination without abnormal findings (principal); F33.9 Major depressive disorder, recurrent, unspecified; F42.9 Obsessive-compulsive disorder, unspecified; E78.9 Disorder of lipoprotein metabolism, unspecified; Z86.59 Personal history of other mental and behavioral disorders | CPT/HCPCS: 96127; 99396 ==